=== PATIENT | male | born 1955 | race Caucasian/White ===

== ENCOUNTER 2017-01-11 09:48 | Emergency (ER) | payer OTHER ==
[~2017-01-11] VITALS: Ht 170.2 cm; Wt 85.5 kg
[~2017-01-11 09:48] MED LIST: CODE118S PO; GUAI-47 PO
[2017-01-11 10:01] VITALS: Ht 170.2 cm; Wt 85.5 kg
--- NOTE | 2017-01-11 12:03 | ERD ---
ER Documentation Chief Complaint Date/Time DATE: 01/11/17 TIME: 12:02 Chief Complaint COUGGH, FEVER AND BODYACHES X 2 DAYS HPI This 61-year-old male presents with cough is productive sputum, body aches and fever for last 3 days. He denies chest pain, vomiting, abdominal pain. ROS All systems reviewed and are negative except as per history of present illness. Medications Home Meds Active Scripts Guaifenesin-Dextromethorphan* (Mucinex* DM) 600-30 Mg Tabsr, 1 TAB PO Q12, #20 TAB Prov:KAITLIN PARRISH PA-C 11/18/15 Promethazine w/Codeine* (Phenergan w/Codeine* Syrup) 473 Ml Syrup, 10 ML PO Q6H Y for COUGH, #200 ML Prov:KAITLIN PARRISH PA-C 11/18/15 Allergies Allergies: Coded Allergies: No Known Allergy (Unverified , 11/17/15) PMhx/Soc Medical and Surgical Hx: pt denies Medical Hx History of Surgery: Yes (abd, rle ) Anesthesia Reaction: No Hx Neurological Disorder: No Hx Respiratory Disorders: No Hx Cardiac Disorders: No Hx Psychiatric Problems: No Hx Miscellaneous Medical Probl: No Hx Alcohol Use: No Hx Substance Use: No Hx Tobacco Use: No Physical Exam Vitals Vital Signs Date Time Temp Pulse Resp B/P Pulse Ox O2 Delivery O2 Flow Rate FiO2 01/11/17 10:01 99.3 95 19 160/88 98 Physical Exam Const: [] Alert, [id number]. Head: Atraumatic Eyes: Normal Conjunctiva ENT: Normal External Ears, Nose and Mouth. TMs and oropharynx normal. Neck: Full range of motion..~ No meningismus. Resp: Clear to auscultation bilaterally. Patient has slight rhonchi without rales or wheezing appreciated. Cardio: Regular rate and rhythm, no murmurs Abd: Soft, non tender, non distended. Normal bowel sounds Skin: No petechiae or rashes Back: No midline or flank tenderness Ext: No cyanosis, or edema Neur: Awake and alert Psych: Normal Mood and Affect Procedures/MDM Patient presents with URI symptoms for last 3 days with fever and body aches without evidence of hypoxemia or respiratory distress. He may have an acute viral illness but given the duration and productive cough he will treated with Zithromax, Robitussin and ibuprofen. The patient was stable with no new complaints during the ER course. Clinically, there is no current evidence to suggest meningitis, sepsis, acute abdomen, pneumonia, acute coronary syndrome, pulmonary embolism, or any other emergent condition appearing to require further evaluation or hospitalization. The patient should certainly return for any new or worsening symptoms per the aftercare instructions. They should otherwise follow-up with her primary care doctor for reevaluation this week. Departure Diagnosis: Primary Impression: URI (upper respiratory infection) URI type: unspecified URI Qualified Code: J06.9 - Upper respiratory tract infection, unspecified type BETTYE GALAN MD Jan 11, 2017 12:03
[2017-01-11] MEDS ORDERED: AZIT250T94 PO (12:04)
[2017-01-11] MEDS ORDERED: UDROBDM PO (12:04)
[2017-01-11] MEDS ORDERED: IBUP-1542 PO (12:05)
[2017-01-11 12:14] VITALS: BP 112/62; PULSE 77; RESP 18; TEMP 98.2
== END 2017-01-11 12:15 | disposition home or self-care (01) ==
LOC: FTE 09:48
DX: J06.9 Acute upper respiratory infection, unspecified (principal)
CPT/HCPCS: 99283

== ENCOUNTER 2018-01-19 14:13 | Emergency (ER) | END 2018-01-19 15:58 | disposition home or self-care (01) ==

== ENCOUNTER 2018-04-14 05:04 | Emergency (ER) | END 2018-04-14 06:45 | disposition home or self-care (01) ==